=== PATIENT | male | born 1955 | race Caucasian/White ===

== ENCOUNTER → 2023-12-07 | Emergency (ER) | payer SELFPAY ==
[~2023-12-07] VITALS: Ht 175.3 cm; Wt 75.1 kg
[~2023-12-07] MED LIST: LORazepam 0.5 MG TAB PO ONE
[2023-12-07 11:02] VITALS: BP 181/110; PULSE 120; RESP 14; O2SAT 99
== END | disposition left against medical advice (07) ==
LOC: ER 10:42
DX: L02.31 Cutaneous abscess of buttock (principal); Z53.21 Procedure and treatment not carried out due to patient leaving prior to being seen by health care provider